=== PATIENT | male | born 1950 | race Caucasian/White ===

== ENCOUNTER 2019-07-13 11:19 | Inpatient (IN) | payer OTHER ==
[~2019-07-13] VITALS: Ht 177.8 cm; Wt 143.5 kg
[~2019-07-13 11:19] MED LIST: AMIO200T67 PO; AMLO1TAB34 PO; APIX2.5T PO; GLIP5TAB11 PO; LISI-662 PO; METF-463 PO; METO25TA6 PO; NAPR250T4 PO; ROSU40 PO
[2019-07-13] MEDS ORDERED: SODIUM CHLORIDE 0.9% 0 ML ONE (11:59)
[2019-07-13] MEDS ORDERED: IOVERSOL 350 MG/ML 150 ML VIAL ONE (11:59)
[2019-07-13] MEDS ORDERED: AMLO1TAB33 PO (12:00)
[2019-07-13] MEDS ORDERED: LINA5TAB PO (12:00)
[2019-07-13] MEDS ORDERED: FURO20TA4 PO (12:00)
[2019-07-13] MEDS ORDERED: GLIP10 PO (12:00)
[2019-07-13] MEDS ORDERED: METO50 PO (12:00)
[2019-07-13] MEDS ORDERED: TAMS-13 PO (12:00)
[2019-07-13] MEDS ORDERED: ONDANSETRON HCL 4 MG/2 ML VIAL IVP ONE (12:00)
[2019-07-13] MEDS ORDERED: NAPR-1025 PO (12:00)
[2019-07-13 12:15] LABS: BASOPHILS % (AUTO) 0.4 % (0.0-2.0); EOSINOPHILS % (AUTO) 0.1 % (1.0-6.0); HEMATOCRIT 42.5 % (41-53); HEMOGLOBIN 14.1 g/dL (13.5-17.5); LYMPHOCYTES # (AUTO) 1.3 K/uL (1.0-4.8); LYMPHOCYTES % (AUTO) 11.3 % (22.0-44.0); MEAN CORPUSCULAR HEMOGLOBIN 29.1 pg (26.0-34.0); MEAN CORPUSCULAR HGB CONC 33.2 G/dL (31.0-37.0); MEAN CORPUSCULAR VOLUME 87 fL (80-100); MONOCYTES # (AUTO) 1.5 K/uL (0.1-1.0); MONOCYTES % (AUTO) 12.7 % (2.0-9.0); NEUTROPHILS % (AUTO) 75.5 % (40.0-70.0); PLATELET COUNT (AUTO) 165 K/uL (150-450); RED BLOOD CELL COUNT(AUTO) 4.86 MIL/uL (4.50-5.90); RED CELL DISTRIBUTION WIDTH 15.9 % (11.5-14.5)
[2019-07-13 12:35] LABS: CALCIUM, TOTAL 8.8 mg/dL (8.8-10.5); CREATININE 3.33 mg/dL (0.60-1.30); POTASSIUM 3.8 mmol/L (3.5-5.1)
[2019-07-13 12:41] LABS: BILIRUBIN,TOTAL 1.3 mg/dL (0.1-1.0); TOTAL PROTEIN, SERUM 8.2 g/dL (6.4-8.2)
[2019-07-13] MEDS ORDERED: SODIUM CHLORIDE 0.9% 1,000 ML IV ONE (12:45)
[2019-07-13] MEDS ORDERED: 0.9% SODIUM CHLORIDE 10 ML SYRINGE IVP PRN ×2 (14:15→20:30)
[2019-07-13] MEDS ORDERED: ONDANSETRON HCL 4 MG/2 ML VIAL IVP PRN ×2 (14:15→20:30)
[2019-07-13] MEDS ORDERED: ACETAMINOPHEN 325 MG TABLET PO PRN (14:15)
[2019-07-13] MEDS ORDERED: CefTRIAXone SODIUM 1 GM/VIAL IM ONE (16:00)
[2019-07-13] MEDS ORDERED: LIDOCAINE/PF 1% 2 ML VIAL IM ONE (16:00)
[2019-07-13 21:09] VITALS: BP 121/56
[2019-07-13] MEDS: METOPROLOL TARTRATE 50 MG TABLET PO SCH (22:12)
[2019-07-13] MEDS: PANTOPRAZOLE SODIUM 40 MG/VIAL IVP SCH (22:36)
[2019-07-13] MEDS ORDERED: MORPHINE SULFATE 2 MG/ML SYRINGE IVP PRN (23:45)
[2019-07-14 00:12] VITALS: BP 122/59
[2019-07-14] MEDS ORDERED: INFLUENZA VIRUS VACCINE QVS 2019-20 (3YR+)/PF 60 MCG/0.5 ML SYRINGE IM ONE (03:15)
[2019-07-14] MEDS ORDERED: PNEUMOCOCCAL VACCINE POLYVALENT 0.5 ML VIAL [PPSV23] IM ONE (03:15)
[2019-07-14 04:14] VITALS: BP 122/66
[2019-07-14] MEDS ORDERED: SODIUM CHLORIDE 0.9% 1,000 ML IV SCH (05:15)
[2019-07-14] MEDS: GlipiZIDE 10 MG TABLET PO SCH (06:30)
[2019-07-14] MEDS ORDERED: IOHEXOL 240 MG/ML 20 ML VIAL ONE ×2 (06:54→09:51)
[2019-07-14] MEDS ORDERED: SODIUM CL IRRIG SOLN BAG 6,000 ML IRRIG ONE ×2 (06:54→08:47)
[2019-07-14 07:20] LABS: GLUCOMETER DEV NAME(LOC) SDS.; GLUCOSE,POINT OF CARE 174 MG/DL (70-110)
[2019-07-14] MEDS ORDERED: NAPROXEN 500 MG TABLET PO SCH (08:00)
[2019-07-14] MEDS ORDERED: HYDROmorphone 2 MG/ML SYRINGE IVP PRN (08:15)
[2019-07-14] MEDS ORDERED: FentaNYL CITRATE-PF 100 MCG/2 ML VIAL IVP PRN (08:15)
[2019-07-14] MEDS ORDERED: FUROSEMIDE 20 MG TABLET PO SCH (09:00)
[2019-07-14] MEDS: TAMSULOSIN HCL 0.4 MG CAPSULE PO SCH (09:00)
[2019-07-14] MEDS ORDERED: OLMESARTAN MEDOXOMIL 20 MG TABLET PO SCH (09:00)
[2019-07-14] MEDS: PANTOPRAZOLE SODIUM 40 MG/VIAL IVP SCH (09:00)
[2019-07-14] MEDS: AmLODIPine BESYLATE 5 MG TABLET PO SCH (09:00)
[2019-07-14] MEDS: ROSUVASTATIN CALCIUM 20 MG TABLET PO SCH (09:00)
[2019-07-14] MEDS: AMIODARONE HCL 200 MG TABLET PO SCH (09:00)
[2019-07-14] MEDS: METOPROLOL TARTRATE 50 MG TABLET PO SCH ×2 (09:00→22:01)
[2019-07-14] MEDS ORDERED: LISINOPRIL 20 MG TABLET PO SCH (09:00)
[2019-07-14] MEDS ORDERED: LinaGLIPtin 5 MG TABLET PO SCH (09:00)
[2019-07-14 09:34] LABS: GLUCOMETER DEV NAME(LOC) 5S.1; GLUCOSE,POINT OF CARE 190 MG/DL (70-110)
[2019-07-14] MEDS ORDERED: DEXTROSE 50%-WATER 25 GM/50 ML SYRINGE IVP PRN (10:30)
[2019-07-14] MEDS ORDERED: HydrALAZINE HCL 20 MG/ML VIAL IVP PRN (10:45)
[2019-07-14 11:02] LABS: BASOPHILS % (AUTO) 0.6 % (0.0-2.0); EOSINOPHILS % (AUTO) 0.8 % (1.0-6.0); HEMATOCRIT 38.4 % (41-53); HEMOGLOBIN 12.8 g/dL (13.5-17.5); LYMPHOCYTES # (AUTO) 0.8 K/uL (1.0-4.8); LYMPHOCYTES % (AUTO) 9.9 % (22.0-44.0); MEAN CORPUSCULAR HEMOGLOBIN 29.2 pg (26.0-34.0); MEAN CORPUSCULAR HGB CONC 33.4 G/dL (31.0-37.0); MEAN CORPUSCULAR VOLUME 88 fL (80-100); MONOCYTES % (AUTO) 11.8 % (2.0-9.0); NEUTROPHILS # (AUTO) 6.4 K/uL (1.8-7.7); NEUTROPHILS % (AUTO) 76.9 % (40.0-70.0); PLATELET COUNT (AUTO) 142 K/uL (150-450); RED BLOOD CELL COUNT(AUTO) 4.39 MIL/uL (4.50-5.90); RED CELL DISTRIBUTION WIDTH 16.2 % (11.5-14.5)
[2019-07-14 11:15] LABS: INR 1.1 (0.9-1.1); PROTHROMBIN TIME 11.1 SEC (9.4-11.6)
[2019-07-14 11:17] LABS: ALBUMIN 2.6 g/dL (3.4-5.0); CALCIUM, TOTAL 8.3 mg/dL (8.8-10.5); CREATININE 3.62 mg/dL (0.60-1.30); MAGNESIUM 1.5 mg/dL (1.80-2.40); TOTAL PROTEIN, SERUM 7.4 g/dL (6.4-8.2)
[2019-07-14 11:30] VITALS: BP 134/74
[2019-07-14] MEDS ORDERED: FentaNYL CITRATE-PF 100 MCG/2 ML VIAL ONE (11:53)
[2019-07-14] MEDS ORDERED: MIDAZOLAM HCL 2 MG/2 ML VIAL ONE (11:54)
[2019-07-14] MEDS ORDERED: NALOXONE HCL 0.4 MG/ML VIAL ONE (11:55)
[2019-07-14] MEDS ORDERED: FLUMAZENIL 0.1 MG/ML 5 ML VIAL IVP ONE (11:55)
[2019-07-14] MEDS ORDERED: FentaNYL CITRATE-PF 100 MCG/2 ML VIAL IVP ONE (12:00)
[2019-07-14] MEDS: CefTRIAXone 1 GM/DEXTROSE 50 ML IV SCH (13:26)
[2019-07-14 15:54] VITALS: BP 113/59
[2019-07-14 19:48] VITALS: BP 112/58
[2019-07-14] MEDS: INSULIN LISPRO 100 UNITS/ML SQ PRN (22:00)
[2019-07-14] MEDS: OXYGEN THERAPY IH SCH (22:01)
[2019-07-15] VITALS (12 sets, daily range): BP systolic 94–147; BP diastolic 55–96
[2019-07-15 06:53] LABS: GLUCOMETER DEV NAME(LOC) 5N.2; GLUCOSE,POINT OF CARE 269 MG/DL (70-110)
[2019-07-15 06:53] LABS: GLUCOMETER DEV NAME(LOC) 5N.2; GLUCOSE,POINT OF CARE 256 MG/DL (70-110)
[2019-07-15] MEDS ORDERED: LIDOCAINE 1% 10 ML VIAL INJ ONE (06:53)
[2019-07-15] MEDS ORDERED: ONDANSETRON HCL 4 MG/2 ML VIAL IVP ONE (06:53)
[2019-07-15] MEDS ORDERED: EPHEDrine SULFATE 50 MG/ML VIAL IM ONE (06:53)
[2019-07-15] MEDS ORDERED: PROPOFOL 1% 20 ML VIAL IVP ONE (06:53)
[2019-07-15] MEDS ORDERED: 0.9% SODIUM CHLORIDE 10 ML VIAL IVP ONE (06:53)
[2019-07-15] MEDS ORDERED: SUCCINYLCHOLINE CHLORIDE 20 MG/ML 10 ML VIAL IVP ONE (06:53)
[2019-07-15 07:59] LABS: BASOPHILS % (AUTO) 0.1 % (0.0-2.0); EOSINOPHILS % (AUTO) 0.1 % (1.0-6.0); LYMPHOCYTES # (AUTO) 0.4 K/uL (1.0-4.8); LYMPHOCYTES % (AUTO) 2.9 % (22.0-44.0); MEAN CORPUSCULAR HEMOGLOBIN 29.2 pg (26.0-34.0); MEAN CORPUSCULAR HGB CONC 33.3 G/dL (31.0-37.0); MEAN CORPUSCULAR VOLUME 88 fL (80-100); MONOCYTES # (AUTO) 0.6 K/uL (0.1-1.0); NEUTROPHILS # (AUTO) 11.3 K/uL (1.8-7.7); PLATELET COUNT (AUTO) 143 K/uL (150-450); RED BLOOD CELL COUNT(AUTO) 4.45 MIL/uL (4.50-5.90); RED CELL DISTRIBUTION WIDTH 16.4 % (11.5-14.5)
[2019-07-15 08:10] LABS: NEUTROPHILS % (AUTO) 91.9 % (40.0-70.0)
[2019-07-15 08:30] LABS: HEMOGLOBIN A1C 8.5 % (3.8-5.6)
[2019-07-15] MEDS: OXYGEN THERAPY IH SCH ×2 (09:08→20:40)
[2019-07-15] MEDS: PANTOPRAZOLE SODIUM 40 MG/VIAL IVP SCH (09:08)
[2019-07-15 09:14] LABS: CALCIUM, TOTAL 9.1 mg/dL (8.8-10.5); CHOL/HDL RATIO 7.7 (4.2-7.3); CREATININE 4.34 mg/dL (0.60-1.30); FREE T4 (FREE THYROXINE) 1.7 ng/dL (0.76-1.46); POTASSIUM 3.8 mmol/L (3.5-5.1); THYROID STIMULATING HORMONE 2.41 uIU/mL (0.36-3.74)
[2019-07-15 09:26] LABS: GLUCOMETER DEV NAME(LOC) 5S.1; GLUCOSE,POINT OF CARE 251 MG/DL (70-110)
[2019-07-15] MEDS ORDERED: LIDOCAINE/PF 1% 5 ML VIAL ONE (09:43)
[2019-07-15] MEDS ORDERED: SODIUM CHLORIDE 0.9% 1,000 ML IV ONE (09:45)
[2019-07-15] MEDS ORDERED: PROPOFOL 1000 MG/ISO-OSM 100 ML IV ONE (09:55)
[2019-07-15] MEDS: CefTRIAXone 1 GM/DEXTROSE 50 ML IV SCH (11:00)
[2019-07-15] MEDS ORDERED: CefTRIAXone SODIUM 1 GM/VIAL ONE (11:14)
[2019-07-15] MEDS ORDERED: SODIUM CHLORIDE 0.9% 500 ML IV ONE ×2 (12:00→12:30)
[2019-07-15] MEDS ORDERED: SODIUM CHLORIDE 0.9% 1,000 ML ONE (12:16)
[2019-07-15] MEDS: METOPROLOL TARTRATE 50 MG TABLET PO SCH ×2 (13:17→20:40)
[2019-07-15] MEDS: AmLODIPine BESYLATE 5 MG TABLET PO SCH (13:17)
[2019-07-15 14:21] LABS: GLUCOMETER DEV NAME(LOC) 5N.2; GLUCOSE,POINT OF CARE 314 MG/DL (70-110)
[2019-07-15] MEDS: AMIODARONE HCL 200 MG TABLET PO SCH ×2 (15:59→16:10)
[2019-07-15] MEDS: ROSUVASTATIN CALCIUM 20 MG TABLET PO SCH (16:10)
[2019-07-15] MEDS: TAMSULOSIN HCL 0.4 MG CAPSULE PO SCH (16:10)
[2019-07-15] MEDS: INSULIN LISPRO 100 UNITS/ML SQ PRN ×3 (16:20→21:43)
[2019-07-15] MEDS ORDERED: MetFORMIN HCL 500 MG ER TABLET PO SCH (17:30)
[2019-07-15] MEDS ORDERED: INSULIN GLARGINE,HUM.REC.ANLOG 100 UNITS/ML SQ SCH (21:00)
[2019-07-15] MEDS ORDERED: INSULIN LISPRO 100 UNITS/ML SQ ONE (21:30)
[2019-07-16 02:25] LABS: GLUCOMETER DEV NAME(LOC) 5N.2; GLUCOSE,POINT OF CARE 443 MG/DL (70-110)
[2019-07-16 02:25] LABS: GLUCOMETER DEV NAME(LOC) 5N.2; GLUCOSE,POINT OF CARE 453 MG/DL (70-110)
[2019-07-16] MEDS ORDERED: FentaNYL CITRATE-PF 100 MCG/2 ML VIAL IVP ONE (05:12)
[2019-07-16] MEDS ORDERED: KETAMINE HCL 50 MG/ML 10 ML VIAL IVP ONE (05:12)
[2019-07-16] MEDS ORDERED: EPHEDrine SULFATE 50 MG/ML VIAL IM ONE (05:12)
[2019-07-16] MEDS ORDERED: MIDAZOLAM HCL 2 MG/2 ML VIAL IVP ONE (05:12)
[2019-07-16] MEDS ORDERED: PHENYLEPHRINE HCL 10 MG/ML VIAL IVP ONE (05:12)
[2019-07-16 05:24] VITALS: BP 146/78
[2019-07-16] MEDS: INSULIN LISPRO 100 UNITS/ML SQ PRN ×4 (05:33→21:41)
[2019-07-16 06:24] LABS: GLUCOMETER DEV NAME(LOC) 5S.2A; GLUCOSE,POINT OF CARE 342 MG/DL (70-110)
[2019-07-16 06:42] LABS: BASOPHILS % (AUTO) 0.1 % (0.0-2.0); EOSINOPHILS % (AUTO) 0.2 % (1.0-6.0); HEMATOCRIT 37.2 % (41-53); HEMOGLOBIN 12.1 g/dL (13.5-17.5); LYMPHOCYTES # (AUTO) 0.5 K/uL (1.0-4.8); MEAN CORPUSCULAR HEMOGLOBIN 28.8 pg (26.0-34.0); MEAN CORPUSCULAR HGB CONC 32.5 G/dL (31.0-37.0); MEAN CORPUSCULAR VOLUME 89 fL (80-100); MONOCYTES # (AUTO) 0.7 K/uL (0.1-1.0); MONOCYTES % (AUTO) 6.1 % (2.0-9.0); NEUTROPHILS # (AUTO) 10.7 K/uL (1.8-7.7); PLATELET COUNT (AUTO) 128 K/uL (150-450); RED CELL DISTRIBUTION WIDTH 16.4 % (11.5-14.5)
[2019-07-16 06:43] LABS: NEUTROPHILS % (AUTO) 89.6 % (40.0-70.0)
[2019-07-16 07:00] LABS: CALCIUM, TOTAL 8.3 mg/dL (8.8-10.5); CREATININE 4.8 mg/dL (0.60-1.30); MAGNESIUM 1.5 mg/dL (1.80-2.40); POTASSIUM 3.9 mmol/L (3.5-5.1)
[2019-07-16 07:29] VITALS: BP 124/72
[2019-07-16] MEDS: AMIODARONE HCL 200 MG TABLET PO SCH (07:54)
[2019-07-16] MEDS: METOPROLOL TARTRATE 50 MG TABLET PO SCH ×2 (07:54→20:20)
[2019-07-16] MEDS: ROSUVASTATIN CALCIUM 20 MG TABLET PO SCH (07:54)
[2019-07-16] MEDS: PANTOPRAZOLE SODIUM 40 MG/VIAL IVP SCH (07:54)
[2019-07-16] MEDS: TAMSULOSIN HCL 0.4 MG CAPSULE PO SCH (07:54)
[2019-07-16] MEDS: AmLODIPine BESYLATE 5 MG TABLET PO SCH (07:54)
[2019-07-16] MEDS: OXYGEN THERAPY IH SCH ×2 (07:55→20:20)
[2019-07-16] MEDS: MORPHINE SULFATE 2 MG/ML SYRINGE IVP PRN ×2 (07:55→15:36)
[2019-07-16 11:35] VITALS: BP 151/87
[2019-07-16] MEDS: CefTRIAXone 1 GM/DEXTROSE 50 ML IV SCH (11:40)
[2019-07-16] MEDS ORDERED: INSULIN LISPRO 100 UNITS/ML SQ ONE ×2 (11:45→17:30)
[2019-07-16] MEDS ORDERED: MAGNESIUM SULFATE 1 GM in DEXTROSE 5%-WATER 50 ML IV ONE (11:45)
[2019-07-16 11:56] LABS: GLUCOMETER DEV NAME(LOC) 5S.2A; GLUCOSE,POINT OF CARE 446 MG/DL (70-110)
[2019-07-16 15:55] VITALS: BP 115/66
[2019-07-16] MEDS ORDERED: DIGOXIN 250 MCG/ML 2 ML AMP IVP ONE (16:45)
[2019-07-16] MEDS: LinaGLIPtin 5 MG TABLET PO SCH (18:21)
[2019-07-16 18:33] LABS: ALBUMIN 2.2 g/dL (3.4-5.0); BILIRUBIN,TOTAL 0.7 mg/dL (0.1-1.0); CALCIUM, TOTAL 8.7 mg/dL (8.8-10.5); CREATININE 5.52 mg/dL (0.60-1.30); POTASSIUM 4.4 mmol/L (3.5-5.1); TOTAL PROTEIN, SERUM 7.4 g/dL (6.4-8.2)
[2019-07-16 19:18] VITALS: BP 141/88
[2019-07-16 21:09] LABS: GLUCOMETER DEV NAME(LOC) 5S.2A; GLUCOSE,POINT OF CARE 543 MG/DL (70-110)
[2019-07-16] MEDS: INSULIN GLARGINE,HUM.REC.ANLOG 100 UNITS/ML SQ SCH (21:39)
[2019-07-16 23:46] VITALS: BP 139/80
[2019-07-17 01:01] LABS: GLUCOMETER DEV NAME(LOC) 5N.2; GLUCOSE,POINT OF CARE 453 MG/DL (70-110)
[2019-07-17 03:36] VITALS: BP 129/68
[2019-07-17] MEDS: INSULIN LISPRO 100 UNITS/ML SQ PRN ×2 (06:13→12:15)
[2019-07-17 06:59] LABS: GLUCOMETER DEV NAME(LOC) 5N.2; GLUCOSE,POINT OF CARE 383 MG/DL (70-110)
[2019-07-17 07:15] LABS: BASOPHILS % (AUTO) 0.2 % (0.0-2.0); EOSINOPHILS % (AUTO) 0.6 % (1.0-6.0); HEMATOCRIT 37.2 % (41-53); HEMOGLOBIN 12.2 g/dL (13.5-17.5); LYMPHOCYTES # (AUTO) 0.6 K/uL (1.0-4.8); LYMPHOCYTES % (AUTO) 4.5 % (22.0-44.0); MEAN CORPUSCULAR HGB CONC 32.8 G/dL (31.0-37.0); MEAN CORPUSCULAR VOLUME 89 fL (80-100); MONOCYTES # (AUTO) 0.7 K/uL (0.1-1.0); MONOCYTES % (AUTO) 5.7 % (2.0-9.0); NEUTROPHILS # (AUTO) 11.6 K/uL (1.8-7.7); PLATELET COUNT (AUTO) 141 K/uL (150-450); RED CELL DISTRIBUTION WIDTH 16.7 % (11.5-14.5)
[2019-07-17 07:16] LABS: ALBUMIN 2.2 g/dL (3.4-5.0); BILIRUBIN,TOTAL 0.7 mg/dL (0.1-1.0); CALCIUM, TOTAL 8.3 mg/dL (8.8-10.5); CREATININE 6.13 mg/dL (0.60-1.30); MAGNESIUM 1.6 mg/dL (1.80-2.40); POTASSIUM 4.4 mmol/L (3.5-5.1); TOTAL PROTEIN, SERUM 7.3 g/dL (6.4-8.2)
[2019-07-17 08:14] VITALS: BP 140/61
[2019-07-17] MEDS: TAMSULOSIN HCL 0.4 MG CAPSULE PO SCH (08:54)
[2019-07-17] MEDS: AmLODIPine BESYLATE 5 MG TABLET PO SCH (09:00)
[2019-07-17] MEDS: AMIODARONE HCL 200 MG TABLET PO SCH (09:01)
[2019-07-17] MEDS: METOPROLOL TARTRATE 50 MG TABLET PO SCH ×2 (09:01→20:31)
[2019-07-17] MEDS: ROSUVASTATIN CALCIUM 20 MG TABLET PO SCH (09:02)
[2019-07-17] MEDS: PANTOPRAZOLE SODIUM 40 MG/VIAL IVP SCH (09:03)
[2019-07-17] MEDS: LinaGLIPtin 5 MG TABLET PO SCH (09:03)
[2019-07-17] MEDS: OXYGEN THERAPY IH SCH ×2 (09:04→20:31)
[2019-07-17] MEDS ORDERED: CefTRIAXone SODIUM 2 GM in DEXTROSE 5%-WATER 50 ML IV SCH (11:00)
[2019-07-17 11:31] VITALS: BP 131/64
[2019-07-17] MEDS ORDERED: MAGNESIUM OXIDE 400 MG TABLET PO ONE (13:00)
[2019-07-17 16:13] VITALS: BP 119/68
[2019-07-17 18:15] LABS: GLUCOMETER DEV NAME(LOC) 5N.2; GLUCOSE,POINT OF CARE 460 MG/DL (70-110)
[2019-07-17 18:15] LABS: GLUCOMETER DEV NAME(LOC) 5S.2A; GLUCOSE,POINT OF CARE 371 MG/DL (70-110)
[2019-07-17] MEDS ORDERED: INSULIN LISPRO 100 UNITS/ML SQ ONE (18:15)
[2019-07-17 19:50] VITALS: BP 99/59
[2019-07-17] MEDS: INSULIN GLARGINE,HUM.REC.ANLOG 100 UNITS/ML SQ SCH (20:33)
== END 2019-07-17 20:40 | disposition short-term general hospital (02) | DRG 660 ==
LOC: EMS 11:25 → 5N 19:00 → 5S 07-14 17:20
PROVIDERS: ADMIT Internal Medicine; ATTEND Internal Medicine
PROC: BT1F1ZZ Fluoroscopy of Left Kidney, Ureter and Bladder using Low Osmolar Contrast (ICD-10-PCS; 2019-07-14)
PROC: 0T778DZ Dilation of Left Ureter with Intraluminal Device, Via Natural or Artificial Opening Endoscopic (ICD-10-PCS; principal; 2019-07-14 07:30)
DX: N13.6 Pyonephrosis (principal); I25.810 Atherosclerosis of coronary artery bypass graft(s) without angina pectoris; I13.0 Hypertensive heart and chronic kidney disease with heart failure and stage 1 through stage 4 chronic kidney disease, or unspecified chronic kidney disease; Z68.42 Body mass index [BMI] 45.0-49.9, adult; E44.0 Moderate protein-calorie malnutrition; N17.9 Acute kidney failure, unspecified; N39.0 Urinary tract infection, site not specified; I11.0 Hypertensive heart disease with heart failure; I50.9 Heart failure, unspecified; E11.8 Type 2 diabetes mellitus with unspecified complications; Z79.84 Long term (current) use of oral hypoglycemic drugs; F31.9 Bipolar disorder, unspecified; K40.20 Bilateral inguinal hernia, without obstruction or gangrene, not specified as recurrent; K44.9 Diaphragmatic hernia without obstruction or gangrene; E11.22 Type 2 diabetes mellitus with diabetic chronic kidney disease; E66.9 Obesity, unspecified; E78.00 Pure hypercholesterolemia, unspecified; B96.4 Proteus (mirabilis) (morganii) as the cause of diseases classified elsewhere; K57.10 Diverticulosis of small intestine without perforation or abscess without bleeding; K80.70 Calculus of gallbladder and bile duct without cholecystitis without obstruction; N18.3 Chronic kidney disease, stage 3 (moderate); E78.5 Hyperlipidemia, unspecified; K31.4 Gastric diverticulum; Z95.810 Presence of automatic (implantable) cardiac defibrillator; N32.3 Diverticulum of bladder; I25.10 Atherosclerotic heart disease of native coronary artery without angina pectoris; I70.8 Atherosclerosis of other arteries; Z82.49 Family history of ischemic heart disease and other diseases of the circulatory system
CPT/HCPCS: 50432; 74018; 74176; 76000; 76705; 76770; 77012; 80074; 83036; 83735; 84145; 84439; 84443; 87040; 87070; 87081; 87086; 87205; 93005; C9113; J0330; J0696; J1160; J1815; J2001; J2250; J2270; J2310; J2370; J2405; J2704; J3010; J3475; J3490; J7030; J7050; J7060; Q9966